=== PATIENT | male | born 1975 | race Caucasian/White ===

== ENCOUNTER 2020-02-07 17:03 | Emergency (ER) | payer OTHER ==
[~2020-02-07] VITALS: Ht 190.5 cm; Wt 106.6 kg
[2020-02-07] MEDS ORDERED: KEFLEX500 MG PO (19:09)
== END 2020-02-07 19:18 | disposition home or self-care (01) ==
LOC: ED 17:03
DX: L03.115 Cellulitis of right lower limb (principal)
CPT/HCPCS: 80048; 85025; 93971; 96374; 99284-25; J0696